=== PATIENT | female | born 1970 | race African-American/Black ===

== ENCOUNTER 2020-11-09 17:58 | Inpatient (IN) | payer BC ==
[2020-11-09 21:50] VITALS: BMI 22.1
[2020-11-10] MEDS ORDERED: ACETAMINOPHEN 325 MG TABLET (FP) PO PRN (01:32)
[2020-11-10] MEDS ORDERED: MAG HYDROX/AL HYDROX/SIMETH 30 ML UNIT-DOSE CUP PO PRN (01:32)
[2020-11-10] MEDS ORDERED: IBUPROFEN 400 MG TABLET (FP) PO PRN (01:32)
[2020-11-10] MEDS ORDERED: LOPERAMIDE HCL 2 MG CAPSULE PO PRN (01:32)
[2020-11-10] MEDS ORDERED: guaiFENesin 200 MG/10 ML 10 ML UNIT-DOSE CUPS PO PRN (01:32)
[2020-11-10] MEDS ORDERED: P-EPHED 60MG/TRIPROLIDI 2.5MG TABLET PO PRN (01:32)
[2020-11-10] MEDS ORDERED: NICOTINE POLACRILEX 2 MG GUM BC PRN (01:32)
[2020-11-10] MEDS ORDERED: MAGNESIUM HYDROX 2400MG/30ML ORAL SUSPENSION 30 ML CUP PO PRN (01:32)
[2020-11-10] MEDS ORDERED: MAGNESIUM CITRATE 300 ML BOTTLE PO PRN (01:32)
[2020-11-10] MEDS ORDERED: TUBERCULIN PPD 5 TU/0.1ML VIAL ID ONE (02:53)
[2020-11-10 11:09] LABS: ALBUMIN 3.6 g/dl (3.4-5.0); CALCIUM 8.9 mg/dL (8.5-10.1)
[2020-11-10 11:11] LABS: BLOOD UREA NITROGEN 18.4 mg/dL (7-18); HEMATOCRIT 39.5 % (32.4-45.2); HEMOGLOBIN 12.7 GM/dL (10.7-15.3); MCH 28.1 pg (25.7-33.7); MCHC 32.2 g/dl (32.0-36.0); MEAN CELL VOLUME 87.2 fl (80-96); MEAN PLT VOLUME 9.2 fl (7.5-11.1); PLATELET COUNT 316 10^3/uL (134-434); RBC 4.53 M/mm3 (3.60-5.2); RDW 13.5 % (11.6-15.6); WHITE BLOOD COUNT 5.1 K/mm3 (4.0-10.0)
[2020-11-10 11:13] LABS: CREATININE 0.9 mg/dL (0.55-1.3)
[2020-11-10 11:15] LABS: BILIRUBIN,TOTAL 0.6 mg/dL (0.2-1); TOT PROT 6.8 g/dl (6.4-8.2)
[2020-11-10] MEDS: NICOTINE 14 MG/24 HOURS TOPICAL PATCH TD SCH (11:54)
[2020-11-10] MEDS: NICOTINE 7 MG/24 HOURS TOPICAL PATCH TD SCH (11:54)
[2020-11-10] MEDS: PRENATAL VITAMINS W/ FOLIC ACID TABLET (FP) PO SCH (11:55)
[2020-11-10] MEDS ORDERED: EMTRICITABINE 200MG/TENOFOVIR 300MG PO SCH (13:15)
[2020-11-10] MEDS: EMTRICITABINE 200MG/TENOFOVIR 300MG PO SCH (14:51)
[2020-11-10] MEDS: DOLUTEGRAVIR SODIUM 50 MG TABLET (NON-FORMULARY) PO SCH (14:51)
[2020-11-11] MEDS: MELATONIN 5 MG TABLETS PO SCH ×2 (00:03→22:39)
[2020-11-11] MEDS: THIAMINE HCL 100 MG TABLET (FP) PO SCH ×2 (00:03→22:39)
[2020-11-11] MEDS: EMTRICITABINE 200MG/TENOFOVIR 300MG PO SCH (08:14)
[2020-11-11] MEDS: PRENATAL VITAMINS W/ FOLIC ACID TABLET (FP) PO SCH (10:14)
[2020-11-11] MEDS: DOLUTEGRAVIR SODIUM 50 MG TABLET (NON-FORMULARY) PO SCH (10:15)
[2020-11-11] MEDS: NICOTINE 7 MG/24 HOURS TOPICAL PATCH TD SCH (10:16)
[2020-11-11] MEDS: NICOTINE 14 MG/24 HOURS TOPICAL PATCH TD SCH (10:16)
[2020-11-11 12:09] LABS: HIV INTERPRETATION NEGATIVE (NEGATIVE)
[2020-11-11 20:00] LABS: URINE APPEARANCE CLOUDY; URINE BILIRUBIN NEGATIVE (NEGATIVE); URINE COLOR YELLOW; URINE GLUCOSE (UA) NEGATIVE (NEGATIVE); URINE KETONE NEGATIVE (NEGATIVE); URINE LEUK ESTERASE NEGATIVE (NEGATIVE); URINE NITRITE NEGATIVE (NEGATIVE); URINE PROTEIN NEGATIVE (NEGATIVE)
[2020-11-12] MEDS: DOLUTEGRAVIR SODIUM 50 MG TABLET (NON-FORMULARY) PO SCH (07:04)
[2020-11-12] MEDS: EMTRICITABINE 200MG/TENOFOVIR 300MG PO SCH (07:04)
[2020-11-12] MEDS: NICOTINE 14 MG/24 HOURS TOPICAL PATCH TD SCH (10:39)
[2020-11-12] MEDS: PRENATAL VITAMINS W/ FOLIC ACID TABLET (FP) PO SCH (10:39)
[2020-11-12] MEDS: NICOTINE 7 MG/24 HOURS TOPICAL PATCH TD SCH (10:39)
[2020-11-12] MEDS: MELATONIN 5 MG TABLETS PO SCH (22:09)
[2020-11-12] MEDS: THIAMINE HCL 100 MG TABLET (FP) PO SCH (22:09)
[2020-11-13 07:00] VITALS: BP 100/75; PULSE 67; TEMP 98
[2020-11-13] MEDS: DOLUTEGRAVIR SODIUM 50 MG TABLET (NON-FORMULARY) PO SCH (07:00)
[2020-11-13] MEDS: EMTRICITABINE 200MG/TENOFOVIR 300MG PO SCH (07:00)
[2020-11-13] MEDS: PRENATAL VITAMINS W/ FOLIC ACID TABLET (FP) PO SCH (10:39)
[2020-11-13] MEDS: NICOTINE 7 MG/24 HOURS TOPICAL PATCH TD SCH (10:39)
[2020-11-13] MEDS: NICOTINE 14 MG/24 HOURS TOPICAL PATCH TD SCH (10:39)
== END 2020-11-13 09:50 | disposition home or self-care (01) | DRG 772 ==
LOC: YASAS 17:58 → Y3W 11-10 01:08
PROVIDERS: ADMIT Allergy & Immunology; ATTEND Allergy & Immunology
PROC: HZ42ZZZ Group Counseling for Substance Abuse Treatment, Cognitive-Behavioral (ICD-10-PCS; principal; 2020-11-10)
DX: F14.20 Cocaine dependence, uncomplicated (principal); F10.10 Alcohol abuse, uncomplicated; F17.210 Nicotine dependence, cigarettes, uncomplicated; Z21 Asymptomatic human immunodeficiency virus [HIV] infection status; Z86.19 Personal history of other infectious and parasitic diseases; Z88.1 Allergy status to other antibiotic agents
CPT/HCPCS: 36415; 80053; 81003; 81025; 85027; 86593; 86780; 87389; 93005; 93010; C9803; U0003; U0005